=== PATIENT | female | born 1955 | race Caucasian/White ===

== ENCOUNTER 2025-03-12 14:20 | Outpatient (CLI) | payer OTHER, SELFPAY | END 2025-03-12 14:21 | disposition home or self-care (01) | PROVIDERS: PCP Family Medicine; Visit Provider Family Medicine | DX: I10 Essential (primary) hypertension (principal); M85.80 Other specified disorders of bone density and structure, unspecified site; R53.83 Other fatigue; G25.81 Restless legs syndrome; Z13.21 Encounter for screening for nutritional disorder; Z13.0 Encounter for screening for diseases of the blood and blood-forming organs and certain disorders involving the immune mechanism | CPT/HCPCS: 80053; 80061; 82306; 82607; 82728 ==

== ENCOUNTER 2025-05-01 15:30 | Outpatient (CLI) | payer OTHER, SELFPAY ==
--- NOTE | 2025-05-01 15:30 | CRLHL7_ITS ---
For Patients: As a result of the Century Cures Act, medical imaging exams and procedure reports are released immediately into your electronic medical record. You may view this report before your referring provider. If you have questions, please contact your health care provider. XR DXA Bone Mineral Density (BMD) Current height (in): 67.0. Weight (lb): 137.0. Menopause age: 55. Ethnicity: White. 1. Have you had a previous hip or vertebral fracture? No. 2. Have you had any fractures during your adult life which did not result from significant trauma (e.g., auto accident)? No. 3. Did either of your parents have a hip fracture? No. 4. Do you smoke? No. 5. Have you ever taken Glucocorticoids? No. 6. Do you have rheumatoid arthritis? No. 7. Do you have secondary osteoporosis? No. 8. Do you drink 3 or more alcoholic drinks per day? No. 9. Are you being treated for osteoporosis? No. 10. Have you ever taken any of the following medications: Actonel, Evista, Fosamax, Miacalcin, Reclast, Boniva, Forteo, HRT (i.e. estrogen/hormone therapy), Protelos, Prolia, Vitamin D, Calcium, other ??? please specify. ANSWER: Yes, Vitamin D, Calcium. 11. Do you have any of the following medical conditions: Anorexia or bulimia, asthma or emphysema, end stage renal disease, hyperparathyroidism, any seizure disorders, cancer, inflammatory bowel diseases, hysterectomy, other ??? please specify. ANSWER: No. 12. What was your maximum height (inches)? 67. 13. Do you perform weight bearing exercise regularly? Yes. 14. Do you regularly consume dairy products? Yes. 15. Do you drink caffeinated beverages? No. If female: 16. At what age did your period start? 15. 17. Are you premenopausal? No. 18. How many full term pregnancies have you had? 2. 19. Have you ever missed your period for more than 6 months in a row (not including or menopause)? No. TECHNIQUE: Bone mineral density study was performed using the Conject. FINDINGS: The results of the study expressed as bone mineral density (BMD) are as follows: Lumbar spine L1 to L4: BMD: 1.373 g/cm2. T-score: 3.0. Z-score: 5.1. Neck Left: BMD: 0.690 g/cm2. T-score: -1.4. Z-score: 0.4. Right: BMD: 0.692 g/cm2. T-score: -1.4 . Z-score: 0.4. Total Left: BMD: 0.840 g/cm2. T-score: -0.8 . Z-score: 0.7. Right: BMD: 0.870 g/cm2. T-score: -0.6 . Z-score: 0.9. IMPRESSION: Osteopenia. FRAX 10-year Fracture Risk Major Osteoporotic Fracture: 8.8 percent Hip Fracture: 1.3 percent Reported Risk Factors: [place] () Neck BMD= 0.690, BMI=21.5 Alfonso Reaves M.D. Diagnostic Radiologist [email or web address] JR/Dictated by: Alfonso Reaves MD @ 05/02/2025 8:30:00 AM (Electronically Signed)
--- OUTSIDE RECORDS SUMMARY | 2025-05-02 00:57 | XMS_ITS | Clinical Summary ---
Author Organization [employer] [facility] Address [address] [place] [address] Care Team Providers Care Lapel Padder Blindstitch Name Role Phone Leidy Crow MD Primary Care Prov ider Nory Faulkner Unavailable [phone] Allergies Active Allergy Reactions Criticality Noted Date Comments Amoxicillin Hives 05/20/2019 Amoxicillin-Pot Clavulanate Hives 05/20/2019 Diatrizoate Allergen Other - Describe In Comment Field 03/02/2007 Shaking/possible nervousness during MR 07 Doxycycline GI Upset 01/30/2020 Erythromycin Nausea Only 05/23/2017 Feathers Runny Nose 07/06/2010 Sulfa (Sulfonamide Antibiotics) Nausea Only 05/26/2016 Medications tretinoin 0.05 % 0.05 % cream 7 Active ergocalciferol (VITAMIN D2; DRISDOL) 50,000 unit capsule Take by mouth. Ac tive calcium with vitamin D3 (OS-ASHANTI 500 + D) tablet Take 1 Tablet by mouth. Active loratadine (CLARITIN) 10 mg tablet Take 10 mg by mouth. Active albuterol HFA (ProAir HFA) 90 mcg/actuation inhalerIndicati ons:Acute bronchitis, unspecified organism,Acute cough Inhale 2 Puffs by mouth every 4 hours if needed for Shortness of Breath 1st choice. HOLD until patient calls 1 Each 11 2 Active estradiol-gildardo stimate (Prefest) 1 mg (15)/1 mg- 0.09 mg (15) tabIndications: Postmenopausal 1 daily. HOLD until patient calls 90 Tablet 4 3 Active fluticasone furoate-vilante roL (Breo Ellipta) 100-25 mcg/dose inhalerIndicati ons:Bronchospas m Take one puff twice a day as needed. HOLD until patient calls 1 Each 4 3 Active acetaZOLAMIDE (DIAMOX) 125 mg tabletIndicatio ns:Effects of high altitude, subsequent encounter Take 125 mg by mouth two times daily. may be discontinued after staying at the same elevation for 2 to 4 days or if descent is initiated. HOLD until patient calls 20 Tablet 3 Active multivitamin capsule Take 1 Capsule by mouth once daily. Active NIFEdipine (PROCARDIA XL) 30 mg extended-releas e tabletIndicatio ns:Hypertension , unspecified type Take 1 Tablet (30 mg) by mouth once daily before a meal. 90 Tablet 3 4 Active progesterone micronized (PROMETRIUM) 100 mg capsuleIndicati ons:Postmenopau lina Take 100 mg by mouth twice weekly at bedtime 90 Capsule 4 Active estradioL (ESTRACE) 0.5 mg tabletIndicatio ns:Postmenopaus al Take 0.5 mg PO twice weekly. 90 Tablet 4 Active Active Problems Problem Noted Date Diagnosed Date PVC (premature ventricular contraction) 10/12/20 21 Essential hypertension 01/11/2019 Osteopenia 09/19/2018 Overview (09/19/2018): 09/23 but not significant decrease in bone mass in spine but there has been some in hips. Recheck in 3-5 yrs. Screening for osteoporosis 06/06/2014 Overview (07/01/2015): 2011 repeat 3-5 yrs. 06/2015 NL repeat 2-3 yrs Sensorineural hearing loss, bilateral 09/27/2013 Postmenopausal Immunizations Immunization Administration Dates Next Due AMB INFLUENZA, IIV4 (AGE=>6M OS) MDV (Flu Clinic Only) 07/14/2019 COVID-19 vaccine (Moderna 100mcg/0.5mL) PF, MDV 09/13/2021 HepA-HepB (Twinrix) 08/05/2014 Hepatitis A (Adult) 05/15/2012 Hepatitis B (Adult) 06/30/2015,10/24/2014 Influenza, High-dose Inactivated 08/18/2022 Influenza, High-dose Quadriv alent Inactivated 08/26/2020 Influenza, IIV3 (Age 6-35 mos) 11/05/2013,2010 Influenza, IIV3 (Age >=3 years) 11/07/2012,08/30 Influenza, IIV4 07/26/2023, 8,09/05/2017,2015,10/06/2015,07/31/2014 Influenza, Inactivated AIIV4 (Age 65+ Years) Preserv Free 09/13/2021 Influenza,CCIIV4 PRESERV FREE 07/14/2019 Pneumococcal Conj 20-valent (Prevnar 20) 07/26/2023 Pneumococcal Poly,23-Valent (Pneumovax) 11/16/2020 Td (Age >=7 Years) 05/04/2004 Tdap 08/05/2014 Typhoid (injectable) 10/17/2019 Zoster (Shingrix-RZV, recombinant) 09/24/2019, Zoster (Zostavax-ZVL, live) 09/27/2016 Family History Medical History Relation Name Comments Allergies Father Cancer-breast Maternal Grandmother age 64 Alcohol/Drug Mother Edna Etoh Heart Disease Mother Edna pacemaker for arythmia Osteoporosis Mother Edna Other Mother Edna macular degener ation/idiopathic emphysema/idiopathic emphysema/bone loss on meds Osteoporosis Paternal Grandmother Asthma Paternal Uncle Alcohol/Drug Sister 4 etoh sober Alcohol/Drug Sister 5 etoh sober Other Son 2 add and hyperac tivity disorder Relation Name Status Comments Daughter Alive Father Alive Maternal Grandmother Mother Edna Alive Paternal Grandmother Paternal Uncle Sister 1 Alive Sister 2 Alive Sister 3 Alive Sister 4 Sister 5 Son 1 Alive Son 2 Social History Tobacco Use Types Packs/Day Years Used Date Smoking Tobacco: Former Cigarettes Q uit: 11/06/1976 Smokeless Tobacco: Never Tobacco Cessation:Counseling Given: Yes Comments:smoked in college Alcohol Use Standard Drinks/Week Comments Yes 5 (1 standard drink = 0.6 oz pur e alcohol) PHQ-2 Answer Date Recorded PHQ-2 TOTAL SCORE 0 02/21/2024 Social Connections Answer Date Recorded Do you often feel lonely or isolated from those around you? 0 12/14/2023 Financial Resource Strain Answer Date R ecorded Difficulty of Paying Living Expenses 3 12/14/2023 Difficulty of Paying Living Expenses Not on file 12/14/2023 Food Insecurity Answer Date Recorded Do you worry your food will run out before you are able to buy more? 1 12/14/2023 Transportation Needs Answer Date Record ed Does lack of transportation keep you from medica l appointments? 1 12/14/2023 Does lack of transportation keep you from work, meetings or getting things that you need? 1 12/14/2023 Housing Stability Answer Date Recorded What is your housing situation today? 1 12/14/2023 Utilities Answer Date Recorded Do you have trouble paying f or utilities (for example, heat, electricity, water, phone)? 1 12/14/2023 Comments No Sex and Gender Information Value Date Recorded Sex Assigned at Not on file Legal Sex Female 6:08 AM SLEEVER Gender Identity Not on file Sexual Orientation Not on file Occupation Industry Job Start Date Job End Date [employer] Not on file Not on file Not on file Obstetrics History Para Term AB IAB SAB Ectopic Multiple Livin g Live Births 3 2 2 1 1 2 Date Outcome GA Total Labor Labor/2nd/3rd Weight Sex Type Anes PTL Andra A1 A5 Name Clin Term Term SAB Last Filed Vital Signs Vital Sign Reading Time Taken Comments Blood Pressure 131/78 02/21/2024 9:46 AM CDT Pulse 60 02/21/2024 8:47 AM CDT Temperature 36.4 C (97.5 F) 01/25/2023 7:54 AM CDT Respiratory Rate 14 08/10/2023 10:37 AM CDT Oxygen Saturation 100% 12/14/2023 9:29 AM SLEEVER Inhaled Oxygen Concentration - - Weight 62 kg (136 lb 9.6 oz) 02/21/2024 8:47 AM CDT Height 171 cm (5' 7.32) 02/21/2024 8:47 AM CDT Body Mass Index 21.19 02/21/2024 8:47 AM CDT Plan of Treatment Health Maintenance Due Date Last Done Comments COVID-19 vaccine series ( season) 2024 09/13/2021, 02/11/2021, 01/07/2021 Tetanus booster 08/05/2024 08/05/2014, 05/04/2004 BMI (ht and wt on same day) for age 18+ 02/20/2025 02/21/2024, 12/14/2023, 01/25/2023, Additional history exists Depression screening for age 12+ 02/20/2025 02/21/2024, 02/21/2024, 01/25/2023, Additional history exists Mammogram for age 45-75 02/20/2025 02/21/20 24, 01/25/2023, 01/24/2022, Additional history exists Medicare Wellness for age 65+ 02/21/2025, 01/25/2023, 10/12/2021, Additional history exists Influenza Vaccine (Season Ended) 2025 07/26/2023, 08/18/2022, 09/13/2021, Additional history exists Fecal testing sDNA-FIT (Ledbetter guard) for age 45-75 03/06/2027 03/06/2024 Lipids for age 45-75 01/26/2028 01/25/2023, 11/16/2020, 10/08/2019, Additional history exists RSV vaccine for adults or (1 - 1-dose 75+ series) 2030 Tdap Completed 08/05/2014 Hepatitis B series for 19+ Completed 06/30, 10/24/2014, 08/05/2014 Hepatitis C screening for ag e 18-79 Completed 02/02/2016 Zoster (shingles) series for age 50+ Completed 09/24/2019, 07/14/2019, 09/27/2016 DEXA/DXA scan for age 65+ Completed 2020, 09/18/2018, 06/30/2015, Additional history exists Pneumococcal series for age 50+ Completed 3, 11/16/2020 Procedures Procedure Name Priority Date/Time Associated Diagnosis Comments SDNA-FIT EXTERNAL (COLOGUARD) Routine 03/06/2024 1:20 PM CDT Screening for colon cancer XR MAMMO BILAT SCREENING Routine 02/21/2024 8:19 AM CDT Visit for screening mammogram LC LIPID PANEL AND CHOL/HDL RATIO Routine 01/25/2023 9:05 AM CDT Screening for lipoid disorders XR DXA BONE DENSITY 2 SITES AXIAL Routine 10/13/2021 2:53 PM SLEEVER Menopause ANTI HCV Routine 02/02/2016 9:36 AM CDT Unexplained weight loss from Last 3 Months or Most Recently Relevant to Health Maintenance Results * SDNA-FIT EXTERNAL (COLOGUARD) (03/06/2024 1:20 PM CDT) NONINV COLON CA DNA+OCC BLD SCRN STL-IMP Negative Negative 03/14/2024 5:29 PM CDT [employer] (CLIA #:[id number]) Comment: NEGATIVE TEST RESULT. A negative Cologuard result indicates a low likelihood that a colorectal cancer (CRC) or advanced adenoma (adenomatous polyps with more advanced pre-malignant features) is present. The chance that a person with a negative Cologuard test has a colorectal cancer is less than 1 in 1500 (negative predictive value >99.9%) or has an advanced adenoma is less than 5.3% (negative predictive value 94.7%). These data are based on a prospective cross-sectional study of 10,000 individuals at average risk for colorectal cancer who were screened with both Cologuard and colonoscopy. (Shai Vogel al, N Engl J Med 2014;370(14):9139-0511) The normal value (reference range) for this assay is negative. COLOGUARD RE-SCREENING RECOMMENDATION: Periodic colorectal cancer screening is an important part of preventive healthcare for asymptomatic individuals at average risk for colorectal cancer. Following a negative Cologuard result, the [place] [employer] Society and U.S. Multi-Society Task Force screening guidelines recommend a Cologuard re-screening interval of 3 years. References: [place] [employer] Society Guideline for Colorectal Cancer Screening: https://www.cancer.org/cancer/syxvy-ourrip-xyclyh/rvxvsouaz-rrroknqoy-dlvgxvc/ac s-rec ommendations.html.; Gene ESCALONA, Diane CR, Giselle SANTIAGO, Colorectal Cancer Screening: Recommendations for Physicians and Patients from the U.S. Multi-Society Task Force on Colorectal Cancer Screening , Am J Gastroenterology 2017; 112:4207-3786. TEST DESCRIPTION: Composite algorithmic analysis of stool DNA-biomarkers with hemoglobin immunoassay. Quantitative values of individual biomarkers are not reportable and are not associated with individual biomarker result reference ranges. Cologuard is intended for colorectal cancer screening of adults of either sex, 45 years or older, who are at average-risk for colorectal cancer (CRC). Cologuard has been approved for use by the U.S. FDA. The performance of Cologuard was established in a cross sectional study of average-risk adults aged 50-84. Cologuard performance in patients ages 45 to 49 years was estimated by sub-group analysis of near-age groups. Colonoscopies performed for a positive result may find as the most clinically significant lesion: colorectal cancer [4.0%], advanced adenoma (including sessile serrated polyps greater than or equal to 1cm diameter) [20%] or non- advanced adenoma [31%]; or no colorectal neoplasia [45%]. These estimates are derived from a prospective cross-sectional screening study of 10,000 individuals at average risk for colorectal cancer who were screened with both Cologuard and colonoscopy. (Shai Weeks. et al, N Engl J Med 2014;370(14):3738-0354.) Cologuard may produce a false negative or false positive result (no colorectal cancer or precancerous polyp present at colonoscopy follow up). A negative Cologuard test result does not guarantee the absence of CRC or advanced adenoma (pre-cancer). The current Cologuard screening interval is every 3 years. ([place] [employer] Society and U.S. Multi-Society Task Force). Cologuard performance data in a 10,000 patient pivotal study using colonoscopy as the reference method can be accessed at the following location: www.mascotsecret.com/results. Additional description of the Cologuard test process, warnings and precautions can be found at www.[employer].com. Stool specimen (specimen) (Rectum) 03/06/2024 1:20 PM CDT 03/07/2024 10:57 AM CDT us Lesly Bauer DO URINE Final Resu lt [employer] (CLIA #:[id number]) [address] [place] [address], * XR MAMMO BILAT SCREENING (02/21/2024 8:19 AM CDT) Anatomical Region Laterality Modality BREASTS, Breast Left, Breast Right Bilateral Mammography Impressions 02/22/2024 3:59 PM CDT There is no radiographic evidence for malignancy. Recommend annual mammograms. MAMMOGRAM ASSESSMENT: ACR 1 Negative PATIENTS: You will also receive a letter with your examination results in an easy to read format. If you have questions about your results, please contact your referring provider. Narrative 02/22/2024 3:59 PM CDT For Patients: As a result of the Cures Act, medical imaging exams and procedure reports are released immediately into your electronic medical record. You may view this report before your referring provider. If you have questions, please contact your health care provider. XR MAMMO BILAT SCREENING [[id number]] CLINICAL HISTORY: This is an asymptomatic 68 y.o. patient. INDICATION FOR EXAM: Mammogram Screening. TECHNIQUE: CC & MLO views were obtained. This study was evaluated with the assistance of Computer-Aided Detection. COMPARISON FILM: Yes 01/25/23 [facility] 01/24/22 [employer] FINDINGS: The breasts are extremely dense, which lowers the sensitivity of mammography. There are no dominant masses, suspicious micro calcifications or areas of architectural distortion. Leidy Crow MD MAMMO Fi nal Result * (ABNORMAL) LC LIPID PANEL AND CHOL/HDL RATIO (01/25/2023 9:05 AM CDT) Cholesterol, Total 224(H) 100 - 199 mg/dL 01/27/2023 9:10 AM CDT [facility] ([facility]) Triglycerides 70 0 - 149 mg/dL 01/27/2023 9:10 AM CDT [facility] ([facility]) HDL Cholesterol 93 >39 mg/dL 9:10 AM CDT [facility] ([facility]) VLDL Cholesterol Ash[place] 12 5 - 40 mg/dL 01/27/2023 9:10 AM CDT [facility] ([facility]) LDL Chol Calc ([facility]) 119(H) 0 - 99 mg/dL 01/27/2023 9:10 AM CDT [facility] ([facility]) T. Chol/HDL Ratio 2.4 0.0 - 4.4 ratio 01/27/2023 9:10 AM CDT [facility] ([facility]) Comment: T. Chol/HDL Ratio Men Women 1/2 Avg.Risk 3.4 3.3 Avg.Risk 5.0 4.4 2X Avg.Risk 9.6 7.1 3X Avg.Risk 23.4 11.0 Blood BLOOD SPECIMEN / Unknown Venipuncture / Unknown 01/25/2023 9:05 AM CDT 01/25/2023 9:06 AM CDT Narrative [facility] ([facility]) - 01/27/2023 9:10 AM CDT Performed at: [address] [place] [id number] Dispensing Audiologist: Bryant Garrido MD, Phone: [phone] Leidy Crow MD SEND OUTS Fi nal Result [facility] ([facility]) [address] [place] [id number], * (ABNORMAL) XR DXA BONE DENSITY 2 SITES AXIAL [37310.1] (10/13/2021 2:53 PM SLEEVER) Anatomical Region Laterality Modality Spine, HIPS, HIPL, HIPR Other Impressions 10/19/2021 7:56 AM SLEEVER Osteopenia. RECOMMENDATIONS: The National Osteoporosis Foundation recommends pharmacologic treatment for patients with T-scores of -2.5 or less, patients with prior history of fragility fractures, or patients with 10-year probability of greater than 3% at hips or greater than 20% of suffering major osteoporotic fractures. Recommend continued optimization of calcium and vitamin D intake through dietary means and/or supplementation and regular exercise. Repeat scan recommended in 3-5 years. Geneva Osman PA-C [facility] 10/19/2021 Narrative 10/19/2021 7:56 AM SLEEVER For Patients: Results are automatically released to your [facility] ([employer]) account once available, in compliance with federal regulations. This means that you may see your results before your provider has had a chance to review them. Please allow 2-3 business days for your provider to comment on the results. XR DXA Bone Mineral Density (BMD) EXAM LOCATION: [address] [address] PATIENT NAME: Brooke Tran DATE OF : 1955 EXAM DATE: 10/13/2021 REQUESTING PROVIDER: Leidy Crow MD GENDER AT : female HEIGHT: 5' 7.32 (10/12/2021) WEIGHT: 139 lb (10/12/2021) MENOPAUSAL STATUS: Postmenopausal RACE/ETHNICITY: White RISK FACTORS: Family History of Osteoporosis, Family History of Hip Fracture (parental), Smoking (prior) and White Race CURRENT MEDICATION FOR BONE LOSS: NONE INDICATION: Menopause COMPARISON DATE(S): 2018 DXA scans are compared to prior studies for a patient only when the two (or more) studies were performed on the same scanner. It is not possible to compare data generated on one scanner to data from another because there are not standards in DXA equipment. This applies even if the two scanners are made by the same copyman. PROCEDURE: Dual-energy x-ray absorptiometry performed with routine technique. Reporting is completed in the form of a T-score. The T-score represents the standard deviation from peak bone mass based on young healthy adult. A Z-score is used for diagnosis in premenopausal women, and for men under the age of 50. FINDINGS: RESULT LUMBAR SPINE L1 - L3 BMD: 1.547 g/cm2 T-Score: + 3.1 Z-Score: + 4.8 Change from prior in 2018: Decrease 0.3%. RESULTS FEMUR Left femoral neck BMD: 0.878 g/cm2 T-Score: - 1.1 Z-Score: + 0.4 Change from prior in 2018: Decrease 5.7%. Right femoral neck BMD: 0.858 g/cm2 T-Score: - 1.3 Z-Score: + 0.3 Change from prior in 2018: Decrease 0.3%. Left hip BMD: 0.935 g/cm2 T-Score: - 0.6 Z-Score: + 0.7 Change from prior in 2018: Increase 1.1%. Right hip BMD: 0.940 g/cm2 T-Score: - 0.5 Z-Score: + 0.8 Change from prior in 2018: Decrease 1.4%. WHO criteria: Normal: T-score at or above -1 SD Osteopenia: T-score between -1.1 and -2.4 SD Osteoporosis: T-score at or below -2.5 SD FRAX RISK CALCULATION (USED FOR OSTEOPENIA ONLY): 10-year probability of major osteoporotic fracture: 14.7%. 10-year probability of hip fracture: 1.1%. Leidy Crow MD DEXA Fi nal Result * ANTI HCV (02/02/2016 9:36 AM CDT) HEPATITIS C ANTIBODY Non-Reacti ve Non-Reacti ve 02/02/2016 5:13 PM CDT [facility] [employer] [facility] Blood specimen (specimen) BLOOD SPECIMEN / Unknown Venipuncture / Unknown 02/02/2016 9:36 AM CDT 02/02/2016 9:37 AM CDT Narrative [facility] - 02/02/2016 5:13 PM CDT Antibodies to HCV not detected; does not exclude the possibility of exposure to HCV. Leidy Crow MD SEND OUTS Fi nal Result [facility] [address] [place] [address], [place] from Last 3 Months or Most Recently Relevant to Health Maintenance Insurance MEDICARE PART A HB ONLY MEDICARE PART B HB ONLY [employer] CHO[employer] PPO MR Advance Directives Documents on File Type Date Recorded Patient Hyperion Developer Expl anation Healthcare Directive 12/18/2019 020 Care Teams Lapel Padder Blindstitch Relationship Specialty Start Date End Date Leidy Crow MD [address] [place] [address] PCP - General 05/05/06 Nory Faulkner AuD [address] [place] [address] Audiology 04/30/13
== END 2025-05-01 15:31 | disposition home or self-care (01) ==
LOC: RAD 15:32
PROVIDERS: PCP Family Medicine; Visit Provider Family Medicine
DX: M85.80 Other specified disorders of bone density and structure, unspecified site (principal); M85.89 Other specified disorders of bone density and structure, multiple sites
CPT/HCPCS: 77080

== ENCOUNTER 2025-05-16 15:02 | Outpatient (CLI) | payer OTHER, SELFPAY ==
--- NOTE | 2025-05-16 15:00 | CRLHL7_ITS ---
For Patients: As a result of the Cures Act, medical imaging exams and procedure reports are released immediately into your electronic medical record. You may view this report before your referring provider. If you have questions, please contact your health care provider. INDICATION: BILATERAL SCREENING MAMMOGRAM, ASYMPTOMATIC 69 Y/O FEMALE COMPARISON: WAITING FOR OUTSIDE IMAGES TECHNIQUE: Digital mammogram in CC and MLO projections including computer-aided detection (CAD) and tomosynthesis. BREAST COMPOSITION: The breasts are heterogeneously dense, which may obscure small masses. FINDINGS: No suspicious findings. ASSESSMENT: BI-RADS 2 Benign RECOMMENDATION: Annual screening mammogram. A lay language report of this examination will be provided to the patient. Dictated by: Alfonso Reaves MD @ 05/21/2025 12:10:31 (Electronically Signed)
== END 2025-05-16 15:03 | disposition home or self-care (01) ==
LOC: MAMMO 15:02
PROVIDERS: PCP Family Medicine; Visit Provider Family Medicine
DX: Z12.31 Encounter for screening mammogram for malignant neoplasm of breast (principal); R92.333 Mammographic heterogeneous density, bilateral breasts
CPT/HCPCS: 77063; 77067